=== PATIENT | female | born 1940 | race Caucasian/White ===

== ENCOUNTER 2017-04-30 18:00 | Emergency (ER) | payer MEDICARE, MEDICAID ==
[~2017-04-30] VITALS: Ht 162.6 cm; Wt 79.0 kg
[~2017-04-30 18:00] MED LIST: ACET-1757 PO; ACID1GRA2 PO; AMLO10TA4 PO; ANAS1TAB PO; ANAS1TAB3 PO; ASPI-515 PO; ASPI325T4 PO; ATOR80TA PO; ATOR80TA75 PO; CARV6.2512 PO; CEFU500T PO; CETI10TA18 PO; CIPR500T87 PO; CLON2TAB PO; DABI150C PO; DOCU100C8 PO; DULO20CA17 PO; ENOX120S5 SQ; ERTA1VIA IV; FENT-58 TD; FENTANYL TD; FURO-93 PO; HYDR-3307 PO; HYDR-3343 PO; HYDR-882 PO; LINE600T37 PO; LISI5TAB7 PO; LOSA1TAB17 PO; LOSA50TA6 PO; MECL25TA4 PO; METO-99 PO; METO25TA35 PO; MIRT45TA PO; MORP15TA39 PO; NITR0.4T SL; NITR100C PO; NYST15PO2 PO; ONDA4TAB7 PO; OXYC10TA6 PO; OXYC5TAB3 PO; PANT40TA5 PO; POLY17PO5 PO; POLY454P4 PO; POTA20TA14 PO; PRIM250T PO; PROM25SU34 RC; SENN1TAB7 PO; SENN8.6T4 PO; SERT100T PO; TIZA4TAB9 PO; TRAM50TA2 PO; TRAZ150T68 PO; WARF10TA PO; WARF7.5T PO; WARF7.5T6 PO
[2017-04-30] MEDS ORDERED: SODIUM CHLORIDE FLUSH 10ML SYR IVF ONE (18:30)
[2017-04-30] MEDS ORDERED: SODIUM CHLORIDE 0.9% 1,000ML IVBOLUS ONE (18:30)
[2017-04-30] MEDS ORDERED: DIPHENHYDRAMINE 50 MG/ML, 1ML IVPush ONE (19:30)
[2017-04-30] MEDS ORDERED: morphine SULFATE 10 MG/ML, 1ML IVPush ONE (19:30)
[2017-04-30 19:49] LABS: BLOOD UREA NITROGEN 12 mg/dL (7-18)
[2017-04-30] MEDS ORDERED: HYDROcodone/APAP 5/325 TABLET PO ONE (20:00)
[2017-04-30] MEDS ORDERED: HYDROcodone/APAP 5/325 TABLET ONE (20:08)
[2017-04-30 20:30] VITALS: BP 145/71
== END 2017-04-30 21:52 | disposition home or self-care (01) ==
LOC: ED 21:46
DX: S40.811A Abrasion of right upper arm, initial encounter (principal); R27.0 Ataxia, unspecified; E78.5 Hyperlipidemia, unspecified; I11.9 Hypertensive heart disease without heart failure; I25.10 Atherosclerotic heart disease of native coronary artery without angina pectoris; W01.0XXA Fall on same level from slipping, tripping and stumbling without subsequent striking against object, initial encounter; Y93.89 Activity, other specified; Y92.009 Unspecified place in unspecified non-institutional (private) residence as the place of occurrence of the external cause; Y99.9 Unspecified external cause status
CPT/HCPCS: 36415; 70450; 80048; 82040; 85025; 85610; 93005; 99285